=== PATIENT | female | born 1975 | race Caucasian/White ===

== ENCOUNTER 2022-01-09 09:44 | Emergency (ER) | payer BC ==
[~2022-01-09] VITALS: Ht 160 cm; Wt 90.3 kg
[2022-01-09 10:06] VITALS: BP_SYST 137
--- NOTE | 2022-01-09 10:21 | NUR ---
PT UP TO BATHROOM FOR URINE COLLECTION.
[2022-01-09] MEDS ORDERED: traMADol HCL HCL 50 MG TABLET (ULTRAM) PO ONE (10:30)
--- NOTE | 2022-01-09 10:46 | NUR ---
PT IN CT SCAN
--- NOTE | 2022-01-09 10:57 | NUR ---
PT REFUSES TRAMADOL, DR HAYS INFORMED,NEW ORDERS RECEIVED
[2022-01-09] MEDS ORDERED: KETOROLAC TROMETHAMINE 60 MG/2 ML VIAL IM ONE (11:00)
[2022-01-09] MEDS ORDERED: METR-154 PO (11:18)
[2022-01-09] MEDS ORDERED: SULF1TAB48 PO (11:18)
[2022-01-09] MEDS ORDERED: IBUP-1969 PO (11:18)
--- NOTE | 2022-01-09 11:32 | NUR ---
Patient given written and verbal discharge instructions and verbalizes understanding. ER MD discussed with patient the results and treatment provided. Patient in stable condition. ID arm band removed. Rx of IBUPROFEN, FLAGYL, BACTRIM given. Patient educated on pain management and to follow up with PMD. Pain Scale . Opportunity for questions provided and answered. Medication side effect fact sheet provided.
[2022-01-09 11:33] VITALS: BP_SYST 128
== END 2022-01-09 11:33 | disposition home or self-care (01) ==
LOC: SED 09:44
DX: K57.92 Diverticulitis of intestine, part unspecified, without perforation or abscess without bleeding (principal); K59.00 Constipation, unspecified; Z88.6 Allergy status to analgesic agent; Z79.899 Other long term (current) drug therapy
CPT/HCPCS: 76376; 74176; 99284; 81002; 96372; J1885